=== PATIENT | female | born 1950 | race Caucasian/White ===

== ENCOUNTER → 2017-04-22 | Outpatient (CLI) | payer OTHER ==
--- NOTE | ~2017-04-22 | EKG ---
[place] [address] [facility] [place] [address] ELECTROCARDIOGRAM REPORT Name: LAXMIDANITA Room #: [facility] Perry#: [id number] Admission: 04/22/17 Attend Phys: Anel Ceja MD Discharge: Date of : 48 Report #: [id number] THIS REPORT FOR: //name// [facility] Test Date: 2017-04-22 Test Time: 13:57:54 Pat Name: DANITA HAIR Department: Room: Gender: F Satellite Specialist: Edna THURMAN : 1950 Requested By: Anel Ceja Order Number: [id number] MD: Guzman Yoder Measurements Intervals [place] Rate: 77 P: 45 VA: 156 QRS: 30 QRSD: 89 T: 42 QT: 374 QTc: 424 Interpretive Statements Sinus rhythm Abnormal R-wave progression, early transition No previous ECG available for comparison Electronically Signed On 04-26-2017 12:49:39 CDT by Guzman Yoder [email or web address] <ELECTRONICALLY SIGNED> By: Guzman Yoder MD, [facility] 04/26/17 1249 [id number] Guzman Yoder MD, FACC /EPI
== END ==
LOC: CV 13:25
DX: E11.9 Type 2 diabetes mellitus without complications (principal); Z01.810 Encounter for preprocedural cardiovascular examination